=== PATIENT | male | born 1990 | race Two or more races ===

== ENCOUNTER 2022-10-03 22:13 | Emergency (ER) | payer MEDICAID, OTHER ==
[~2022-10-03] VITALS: Ht 167.6 cm; Wt 95.2 kg
[2022-10-03] MEDS ORDERED: CEPHALEXIN 250 MG CAP PO ONE (23:30)
[2022-10-03] MEDS ORDERED: TETANUS-DIPTH-ACEL PERTUSSIS 0.5ML SYR Tdap IM ONE (23:30)
[2022-10-03] MEDS ORDERED: LIDOCAINE 1% HCL (LOCAL ANESTH.) INJ 20ML MDV ID ONE (23:30)
[2022-10-04] MEDS ORDERED: ceFAZolin 2 GM/D5W100ml 100 ML IV ONE (00:45)
[2022-10-04] MEDS ORDERED: IBU600T PO (01:31)
[2022-10-04] MEDS ORDERED: MUPI2OIN2 EX (01:31)
[2022-10-04] MEDS ORDERED: CEPH500C PO (01:31)
[2022-10-04 02:00] VITALS: BP 150/110; PULSE 90; RESP 20; TEMP 98.4; O2SAT 97
[2022-10-04] MEDS ORDERED: ceFAZolin IM 1GM/2.5ML STERILE WATER IM ONE (02:15)
[2022-10-04] MEDS ORDERED: ceFAZolin 1GM VL ONE (02:19)
== END 2022-10-04 02:10 | disposition home or self-care (01) ==
LOC: EDBD 22:13 → ER 22:13
DX: S61.511A Laceration without foreign body of right wrist, initial encounter (principal); S01.01XA Laceration without foreign body of scalp, initial encounter; S66.921A Laceration of unspecified muscle, fascia and tendon at wrist and hand level, right hand, initial encounter; F10.10 Alcohol abuse, uncomplicated; Z79.899 Other long term (current) drug therapy; W22.8XXA Striking against or struck by other objects, initial encounter; Y93.89 Activity, other specified; Y92.89 Other specified places as the place of occurrence of the external cause; Y99.8 Other external cause status
CPT/HCPCS: 12004; 12044; 70450; 73110; 90471; 90715; 96372; 99285; J0690; J2001